=== PATIENT | male | born 1970 | race Two or more races ===

== ENCOUNTER 2017-06-16 01:56 | Emergency (ER) | payer BC ==
[2017-06-16] MEDS ORDERED: Albuterol/Ipratropium 3.0-0.5 MG/3 ML Neb Soln NEB ONE (02:17)
--- NOTE | 2017-06-16 02:21 | EDM.PDOC ---
ED HPI GENERAL MEDICAL PROBLEM - General Chief Complaint: Respiratory Problem Stated Complaint: TROUBLE BREATHING Time Seen by Provider: 06/16/17 02:12 - History of Present Illness INITIAL COMMENTS - FREE TEXT/NARRATIVE: HISTORY AND PHYSICAL: History of present illness: The patient is a 47-year-old male with no stated pulmonary history who presents with complaints of a dry hacking cough for the last 1 week and some nasal drainage and postnasal drip and going to bed last evening feeling relatively okay and then waking up suddenly feeling short of breath which has since improved. The patient states he does have a history of anxiety and bipolar disorder but he does not take anything on a regular basis for his anxiety. He is not sure if he felt anxious when he woke up but he felt like his heart was racing and now those symptoms have improved. He did not have any chest pain with that episode. He has had some subjective fever over the last week but no documented fever no nausea no vomiting no chest pain and no sore throat. Patient does not smoke. Patient lives in [place] and is here for work. Currently in the ED he still has a slight dry cough. He says that last night he woke up coughing and had an episode where he couldn't stop coughing but that did not occur tonight. Patient tells nursing that he usually takes a medication for sleeping and he did not take it this evening. He says instead he took an allergy pill Review of systems: As per history of present illness and below otherwise all systems reviewed and negative. Past medical history: As per history of present illness and as reviewed below otherwise noncontributory. Surgical history: As per history of present illness and as reviewed below otherwise noncontributory. Social history: No reported history of drug or alcohol abuse. Family history: As per history of present illness and as reviewed below otherwise noncontributory. Physical exam: Gen.: Well-developed well-nourished man who is nontoxic and speaking clearly and easily in the ED he is not breathless. Vital signs of the note by me. HEENT: Atraumatic, normocephalic, pupils reactive, negative for conjunctival pallor or scleral icterus, mucous membranes moist, throat clear, neck supple, nontender, trachea midline. Lungs: Clear to auscultation, breath sounds equal bilaterally, chest nontender. There is no worker breathing or sensory muscle use. There is no stridor or wheezing. Heart: S1S2, regular rate and rhythm no overt murmurs Abdomen: Soft, nondistended, nontender. NABS Pelvis: Deferred Genitourinary: Deferred. Rectal: Deferred. Extremities: Atraumatic, negative for cords or calf pain. Neurovascular unremarkable. No pedal edema or leg asymmetry Neuro: Awake, alert, oriented. Cranial nerves II through XII unremarkable. Cerebellum unremarkable. Motor and sensory unremarkable throughout. Exam nonfocal. Diagnostics: EKG chest x-ray Therapeutics: DuoNeb spacer prednisone Patient states that he feels much better after the DuoNeb. I discussed with him testing results and care plan for home which includes an inhaler a spacer and prednisone. Advised him to connect with our clinic for follow-up Impression: Bronchitis Definitive disposition and diagnosis as appropriate pending reevaluation and review of above. - Related Data Allergies Allergy/AdvReac Type Severity Reaction Status Date / Time No Known Allergies Allergy Verified 05/29/16 11:49 Home Meds: Home Meds . [No Known Home Meds] 04/16/16 [History] Past Medical History HEENT History: Reports: None Cardiovascular History: Reports: None Respiratory History: Reports: None Psychiatric History: Reports: Anxiety, Bipolar Oncologic (Cancer) History: Reports: Colon - Infectious Disease History Infectious Disease History: Reports: Chicken Pox Other Infectious Disease History: possible Hepatitis in past, does not recall type - Past Surgical History GI Surgical History: Reports: Appendectomy, Cholecystectomy, Colon Social & Family History - Family History Family Medical History: Noncontributory Cardiac: Reports: CAD GI: Reports: Other (See Below) Other GI Family History: 2 sisters with "colon problems" Endocrine/Metabolic: Reports: Diabetes, Type I, Diabetes, type II - Tobacco Use Smoking Status *Q: Never Smoker Second Hand Smoke Exposure: No - Caffeine Use Caffeine Use: Reports: Coffee, Energy Drinks, Soda - Alcohol Use Days Per Week of Alcohol Use: 1 Number of Drinks Per Day: 1 Total Drinks Per Week: 1 - Recreational Drug Use Recreational Drug Use: No ED ROS GENERAL - Review of Systems Review Of Systems: ROS reveals no pertinent complaints other than HPI. ED EXAM, GENERAL - Physical Exam Exam: See Below (See dictation) Course - Vital Signs Last Recorded V/S: Last Vital Signs Temp 36.6 C 06/16/17 01:58 Pulse 99 06/16/17 02:27 Resp 18 06/16/17 02:27 BP 132/86 06/16/17 02:27 Pulse Ox 98 06/16/17 02:27 - Orders/Labs/Meds Orders: Active Orders 24 hr Category Date Time Status Communication Order [RC] STAT Care 06/16/17 03:16 Ordered EKG Documentation Completion [RC] STAT Care 06/16/17 02:17 Active RT Aerosol Therapy [RC] ASDIRECTED Care 06/16/17 02:18 Active Chest 2V [CR] Stat Exams 06/16/17 02:17 Taken predniSONE Med 06/16/17 03:16 Once 40 mg PO ONETIME ONE Medication Orders Prednisone (Prednisone) 40 mg PO ONETIME ONE Stop: 06/16/17 03:17 Meds: Medications Generic Name Dose Route Start Last Admin Trade Name Freq PRN Reason Stop Dose Admin Prednisone 40 mg 06/16/17 03:16 Prednisone PO 06/16/17 03:17 ONETIME ONE Discontinued Medications Generic Name Dose Route Start Last Admin Trade Name Freq PRN Reason Stop Dose Admin Albuterol/Ipratropium 3 ml 06/16/17 02:17 06/16/17 02:23 Duoneb 3.0-0.5 Mg/3 Ml NEB 06/16/17 02:18 3 ml ONETIME ONE Administration Departure - Departure Time of Disposition: 03:17 Disposition: Home, Self-Care 01 Condition: Good Clinical Impression: Bronchitis - Discharge Information Referrals: PCP,None [Primary Care Provider] - Forms: ED Department Discharge Additional Instructions: The following information is given to patients seen in the emergency department who are being discharged to home. This information is to outline your options for follow-up care. We provide all patients seen in our emergency department with a follow-up referral. The need for follow-up, as well as the timing and circumstances, are variable depending upon the specifics of your emergency department visit. If you don't have a primary care physician on staff, we will provide you with a referral. We always advise you to contact your personal physician following an emergency department visit to inform them of the circumstance of the visit and for follow-up with them and/or the need for any referrals to a consulting specialist. The emergency department will also refer you to a specialist when appropriate. This referral assures that you have the opportunity for followup care with a specialist. All of these measure are taken in an effort to provide you with optimal care, which includes your followup. Under all circumstances we always encourage you to contact your private physician who remains a resource for coordinating your care. When calling for followup care, please make the office aware that this follow-up is from your recent emergency room visit. If for any reason you are refused follow-up, please contact the [facility] emergency department at and ask to speak to the emergency department charge nurse. [facility] Primary care- Internal Medicine and Family [address] [address] Please call the clinic tomorrow morning to get a follow-up appointment as we discussed. Please use your inhaler every 6 hours for the next 2 days and then every 6 hours as needed. Push hydration and take the prednisone you have been prescribed until it is finished. Try to avoid extremes of temperature and smoke. Please use coolmist humidifier at nighttime and try to sleep on several pillows to promote nasal drainage. Return to ER as needed and as discussed - My Orders Last 24 Hours: My Active Orders 06/16/17 02:17 EKG Documentation Completion [RC] STAT Chest 2V [CR] Stat 06/16/17 02:18 RT Aerosol Therapy [RC] ASDIRECTED 06/16/17 03:16 Communication Order [RC] STAT predniSONE 40 mg PO ONETIME ONE - Assessment/Plan Last 24 Hours: My Active Orders 06/16/17 02:17 EKG Documentation Completion [RC] STAT Chest 2V [CR] Stat 06/16/17 02:18 RT Aerosol Therapy [RC] ASDIRECTED 06/16/17 03:16 Communication Order [RC] STAT predniSONE 40 mg PO ONETIME ONE
[2017-06-16] MEDS ORDERED: predniSONE 20 MG Tab PO ONE (03:16)
[2017-06-16 03:38] VITALS: BP 151/94
--- NOTE | 2017-06-16 14:45 | CR ---
EXAM DATE: 06/16/17 PATIENT'S AGE: 47 Patient: CHRISTINA GRULLON Facility: [place], [place] Site . Site : 1970 Study: XRay Chest [id number]/16/2017 2:59:00 AM Ordering Physician: Makeda Ovalle Final Report: INDICATIONS: Short of breath. TECHNIQUE: Chest 2 view. COMPARISON: Chest radiograph 05/29/2016. FINDINGS: No pneumothorax, pleural effusion or airspace consolidation. Cardiac and mediastinal contours are within normal limits. Surgical clips in the upper abdomen. Bony thorax as imaged is unremarkable. IMPRESSION: No acute cardiopulmonary disease. Dictated by Evans Cannon MD @ 06/16/2017 3:04:37 AM Dictated by: Evans Cannon MD @ 06/16/2017 03:04:43 (Electronic Signature) Report Signed by Proxy. [facility]OSPITALElidia
== END 2017-06-16 03:42 | disposition home or self-care (01) ==
LOC: MW.ED 01:56
DX: J40 Bronchitis, not specified as acute or chronic (principal); Z90.49 Acquired absence of other specified parts of digestive tract
CPT/HCPCS: 71020; 93005; 99285; A9270; 99283

== ENCOUNTER 2024-03-07 19:20 | Emergency (ER) | payer BC, MEDICAID ==
[2024-03-07] MEDS: Sodium Chloride 0.9% 500 ML IV SCH (20:00)
[2024-03-07] MEDS: Pantoprazole 80 MG in Sodium Chloride 0.9% 10 ML IVPUSH ONE (20:00)
[2024-03-07] MEDS: Sodium Chloride 0.9% 10 ML Syringe FLUSH PRN (20:00)
[2024-03-07] MEDS: Sodium Chloride 0.9% 2.5 ML Syringe FLUSH PRN (20:00)
[2024-03-07 20:04] LABS: HEMATOCRIT 37.8 % (42.0-52.0); HEMOGLOBIN 12.7 g/dL (14.0-18.0); MEAN CORPUSCULAR HEMOGLOBIN 30.1 pg (28.0-32.0); MEAN CORPUSCULAR HGB CONC 33.6 g/dL (32.0-36.0); MEAN CORPUSCULAR VOLUME 89.6 fL (83.0-99.0); MEAN PLATELET VOLUME 10.2 fL (9.4-12.4); PLATELET COUNT,PLT 245 K/uL (150-400); RED BLOOD CELL COUNT 4.22 M/uL (4.52-5.90); WHITE BLOOD CELL COUNT,WBC 14.35 K/uL (3.9-11.3)
[2024-03-07 20:06] LABS: BILIRUBIN,URINE NEGATIVE (NEGATIVE); COLOR,URINE YELLOW; GLUCOSE,URINE NEGATIVE (NEGATIVE); KETONES,URINE NEGATIVE (NEGATIVE); LEUKOCYTE ESTERASE,URINE NEGATIVE (NEGATIVE); NITRITE,URINE NEGATIVE (NEGATIVE); OCCULT BLOOD,URINE TRACE-INTACT (NEGATIVE); PROTEIN,URINE TRACE mg/dL (NEGATIVE); UROBILINOGEN,URINE 0.2 EU/dL (<2.0)
[2024-03-07 20:11] LABS: INR 1.09 (0.86-1.11)
[2024-03-07 20:14] LABS: APPEARANCE,URINE CLEAR
[2024-03-07 20:25] LABS: ALBUMIN 3.4 g/dL (3.4-5.0); BILIRUBIN TOTAL 0.7 mg/dL (0.2-1.0); CALCIUM 8.6 mg/dL (8.5-10.1); CARBON DIOXIDE,CO2 25.8 mmol/L (21.0-32.0); CREATININE 1.1 mg/dL (0.8-1.3); EST CRCL DRUG DOSING (CG) 70.94 mL/min; POTASSIUM,K 3.9 mmol/L (3.5-5.1); PROTEIN TOTAL,TP 6.8 g/dL (6.4-8.2); TSH ULTRASENSITIVE 2.18 uIU/mL (0.36-3.74)
[2024-03-07 20:33] LABS: BACTERIA,URINE RARE (NEGATIVE); EPITHELIAL CELLS,URINE RARE (NONE-FEW); WBC,URINE 0-1 (0-5/HPF)
[2024-03-07 20:46] LABS: BASOPHILS ABSOLUTE MAN 0.14 K/uL (0.00-0.20); BASOPHILS PERCENT MAN 1 % (0-1); EOSINOPHILS ABSOLUTE MAN 1.29 K/uL (0.00-0.45); EOSINOPHILS PERCENT MAN 9 % (0-6); LYMPHOCYTES ABSOLUTE MAN 5.45 K/uL (1.00-4.80); LYMPHOCYTES PERCENT MAN 38 % (24-44); MONOCYTES ABSOLUTE MAN 0.57 K/uL (0.00-0.80); MONOCYTES PERCENT MAN 4 % (0-8); SEG NEUTROPHILS ABSOLUTE MAN 6.89 K/uL (1.80-7.70); SEG NEUTROPHILS PERCENT MAN 48 % (41-71)
[2024-03-07 20:52] LABS: LACTIC ACID 1.5 mmol/L (0.4-2.0)
[2024-03-07] MEDS: Piperacillin/Tazobactam 4.5 GM in Sodium Chloride 0.9% 100 ML IV ONE (21:11)
[2024-03-07] MEDS: Sodium Chloride 0.9% 1,000 ML IV ONE (21:11)
[2024-03-07] MEDS: Iopamidol 755 MG/ML 500 ML Multipack Bottle IVPUSH ONE (22:16)
[2024-03-07] MEDS: Ondansetron 4 MG/2 ML SDV IVPUSH ONE (23:20)
[2024-03-07 23:30] LABS: BASOPHILS ABSOLUTE AUTO 0.04 K/uL (0.00-0.20); BASOPHILS PERCENT AUTO 0.4 % (0.0-1.0); EOSINOPHILS ABSOLUTE AUTO 0.28 K/uL (0.00-0.45); EOSINOPHILS PERCENT AUTO 2.6 % (0.0-6.0); HEMATOCRIT 29.4 % (42.0-52.0); IMMATURE GRAN ABSOLUTE AUTO 0.02 K/uL (0.00-0.05); IMMATURE GRAN PERCENT AUTO 0.2 % (0.0-0.4); LYMPHOCYTES ABSOLUTE AUTO 3.29 K/uL (1.00-4.80); LYMPHOCYTES PERCENT AUTO 30.5 % (24.0-44.0); MEAN CORPUSCULAR HEMOGLOBIN 30.4 pg (28.0-32.0); MEAN CORPUSCULAR VOLUME 89.4 fL (83.0-99.0); MONOCYTES ABSOLUTE AUTO 0.42 K/uL (0.00-0.80); MONOCYTES PERCENT AUTO 3.9 % (0.0-8.0); NEUTROPHILS ABSOLUTE AUTO 6.73 K/uL (1.80-7.70); NEUTROPHILS PERCENT AUTO 62.4 % (41.0-71.0); PLATELET COUNT,PLT 190 K/uL (150-400); RED BLOOD CELL COUNT 3.29 M/uL (4.52-5.90); WHITE BLOOD CELL COUNT,WBC 10.78 K/uL (3.9-11.3)
[2024-03-08 02:03] VITALS: BP 105/62; PULSE 99
== END 2024-03-08 02:47 ==
LOC: MW.ED 19:20
DX: K92.2 Gastrointestinal hemorrhage, unspecified (principal); I95.9 Hypotension, unspecified; Z90.49 Acquired absence of other specified parts of digestive tract
CPT/HCPCS: 36415; 36430; 71045; 71275; 74177; 80053; 81001; 83605; 83690; 83880; 84443; 84484; 85025; 85610; 86850; 86900; 86901; 86920; 87040; 93005; 96361; 96365; 96375; 99285; J2405; J2470; J2543; J3490; J7030; J7040; P9016; Q9967; 99291; C9113